=== PATIENT | female | born 1965 | race Hispanic/Latino ===

== ENCOUNTER 2021-01-10 10:50 | Emergency (ER) | payer OTHER ==
--- OUTSIDE RECORDS SUMMARY | 2021-01-10 10:53 | XMS REPORT | Continuity of Care Document ---
:1965 Author Organization [facility] t Address [address] [place] [address] Care Team Providers Name Role Phone Unavailable Unavailable Unavailable Problems Condition Condition Condition Status Onset Resolution Last Treating Co mments Source Name Details Category Date Date Treatment Clinician Date Acquired Acquired Problem [facility] Allergies, Adverse Reactions, Alerts This patient has no known allergies or adverse reactions. Medications This patient has no known medications. Procedures This patient has no known procedures. Encounters Start End Encounter Admission Attending Care Care Encounter Source Date/Time Date/Time Type Type Clinicians Facility Department ID 2019-01-24 2019-01-24 Out[facility] [id number] [facility] [address] 13:21:00 13:21:00 [employer] [place] [facility] Medicine Outpat[facility] Clinics Results This patient has no known results.
--- NOTE | 2021-01-10 12:12 | ER ---
Nurse's Notes [facility] Name: Tressa Parisi Age: 55 yrs Sex: Female : 1965 Arrival Date: 01/10/2021 Time: 10:54 Bed Waiting Private MD: Diagnosis: Assessment: 01/10 12:11 Reassessment: pt told registration staff that she just wanted a covid test and was ss going to [facility]. ED Course: 10:54 Patient arrived in ED. ds1 11:59 Cesar Shah MD is Attending Physician. tw4 Administered Medications: 12:12 Not Given (Pt eloped prior to triage.): Zofran (Ondansetron) 4 mg PO once ss Outcome: 12:11 Eloped from waiting room, before seeing physician ss 12:11 unknown 12:11 Patient left the ED. ss Signatures: Marian Woo ds1 Migdalia Galvez RN RN ss Cesar Shah MD MD tw4
== END 2021-01-10 12:11 | disposition left against medical advice (07) ==
LOC: ER 10:50
DX: Z02.9 Encounter for administrative examinations, unspecified (principal)